=== PATIENT | female | born 1960 | race Two or more races ===

== ENCOUNTER 2018-07-03 07:52 | Emergency (ER) | payer OTHER ==
[2018-07-03 08:00] VITALS: BP 117/70; PULSE 76; TEMP 98; BMI 23.9
[2018-07-03] MEDS ORDERED: DEXAMETHASONE SOD PHOSPHATE 10 MG/1 ML VIAL ONE (08:48)
--- NOTE | 2018-07-03 09:00 | PDOC ---
History of Present Illness - General Chief Complaint: Back Pain Stated Complaint: LOW BACK PAIN Time Seen by Provider: 07/03/18 08:24 History Source: Patient Exam Limitations: No Limitations - History of Present Illness Initial Comments: 07/03/18 08:55 onset of back pain 2 days ago, has progressively worsened - no dificult to sit/ walk/ bend./ Denies injury/ change in exercise. States was vacuuming last th when onset begain / Has been taking Valium and Percocet for pain and spasm with no resolve. Occurred: reports: yesterday Severity: reports: moderate Pain Location: reports: back Method of Injury: Yes: unknown Loss of Consciousness: no loss of consciousness Associated Symptoms (Fall): neck pain Past History - Travel Traveled outside of the country in the last 30 days: No Close contact w/someone who was outside of country & ill: No - Past Medical History Allergies/Adverse Reactions: Allergies Allergy/AdvReac Type Severity Reaction Status Date / Time aspirin Allergy Rash Verified 07/03/18 07:57 ibuprofen Allergy Rash Verified 07/03/18 07:57 Home Medications: Ambulatory Orders Levothyroxine [Synthroid -] 50 mcg PO DAILY 06/18/15 Ciprofloxacin [Cipro -] 500 mg PO BID 7 Days tablet 06/22/15 Lidocaine 5% Patch [Lidoderm -] 1 patch TP DAILY patch 06/22/15 Naproxen [Naprosyn -] 375 mg PO BID #30 tablet 06/22/15 Cyclobenzaprine HCl 10 mg PO Q8H PRN #14 tablet 07/03/18 predniSONE [Deltasone -] 20 mg PO BID #8 tablet 07/03/18 COPD: No Hypercholesterolemia: Yes Thyroid Disease: Yes - Immunization History Immunization Up to Date: Yes - Suicide/Smoking/Psychosocial Hx Smoking History: Never smoked Hx Alcohol Use: No Drug/Substance Use Hx: No Substance Use Type: None Trauma Specific PMHX - Complaint Specific PMHX Back Injury: No (denies heavy lifting, exercise changes, or trauma) Neck Injury: No Review of Systems - Review of Systems Able to Perform ROS?: Yes Is the patient limited [place] proficient: Yes Constitutional: Yes: Symptoms Reported, See HPI, Malaise HEENTM: Yes: See HPI. No: Symptoms Reported Respiratory: Yes: See HPI. No: Symptoms reported, Cough Cardiac (ROS): No: Symptoms Reported Integumentary: Yes: Symptoms Reported Neurological: Yes: Symptoms reported, See HPI, Headache All Other Systems: Reviewed and Negative *Physical Exam - Vital Signs Last Vital Signs Temp Pulse Resp BP Pulse Ox 98.0 F 76 18 117/70 100 07/03/18 07:58 07/03/18 07:58 07/03/18 07:58 07/03/18 07:58 07/03/18 07:58 - Physical Exam General Appearance: Yes: Appropriately Dressed, Apparent Distress, Moderate Distress HEENT: positive: ALEX, Normal ENT Inspection, TMs Normal, Pharynx Normal Neck: positive: Supple. negative: Tender Respiratory/Chest: positive: Lungs Clear Musculoskeletal: positive: Normal Inspection, Decreased Range of Motion, Muscle Spasm (neurovascular intact distal to low back). negative: CVA Tenderness, Vertebral Tenderness Extremity: positive: Normal Capillary Refill. negative: Normal Range of Motion (emitted range of motion, unable to bend at waist or stand secondary severe pain and low back. 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 Wood for potential physical therapy referral for potential change in medication regime, possible orthopedic referral. *DC/Admit/Observation/Transfer Diagnosis at time of Disposition: Low back strain Qualifiers: Encounter type: initial encounter Qualified Code(s): S39.012A - Strain of muscle, fascia and tendon of lower back, initial encounter - Discharge Dispostion Disposition: HOME Condition at time of disposition: Stable Decision to Admit order: No - Prescriptions Prescriptions: Cyclobenzaprine HCl 10 mg PO Q8H PRN #14 tablet PRN Reason: spasm predniSONE [Deltasone -] 20 mg PO BID #8 tablet - Referrals Referrals: Era Allen MD [Primary Care Provider] - Kt Smith DO [Staff Physician] - - Patient Instructions Printed Discharge Instructions: DI for Back Strain or Sprain Additional Instructions: Rest, no heavy lifting or exercise until pain is resolved Hot soaks to neck and low back as often as possible/hot showers or Jacuzzis No massage or therapy until spasm is gone Continue Tylenol 500 mg tablet, 1 tablet every 6 hours for the next 3 days then as needed for pain and swelling Cyclobenzaprine 1-10mg every 8 hours as needed for spasm Prednisone 20 mg twice a day for the next 4 days for steroid all anti- inflammatory purpose If not significant improvement within 24 hours with medication and rest regime, followup with private physician for change in medications and /or therapy. - Post Discharge Activity Forms/Work/School Notes: Back to Work
== END 2018-07-03 09:12 | disposition home or self-care (01) ==
LOC: JERFT 07:52
DX: S39.012A Strain of muscle, fascia and tendon of lower back, initial encounter (principal); X50.0XXA Overexertion from strenuous movement or load, initial encounter; Y93.E3 Activity, vacuuming; Y92.018 Other place in single-family (private) house as the place of occurrence of the external cause; Y99.8 Other external cause status
CPT/HCPCS: 99281-25

== ENCOUNTER 2020-11-25 04:34 | Day surgery (SDC) | payer OTHER ==
[2020-11-22 15:42] VITALS: BMI 23.8
[2020-11-25] MEDS ORDERED: LIDOCAINE HCL/PF 1% SDV 5ML VIAL ONE (07:13)
[2020-11-25] MEDS ORDERED: DEXAMETHASONE SOD PHOSPHATE 10 MG/1 ML VIAL ONE (07:13)
[2020-11-25] MEDS ORDERED: IOHEXOL 180 MG/1 ML ML IJ ONE (08:41)
[2020-11-25] MEDS ORDERED: LIDOCAINE 1% P/F 10 MG/ML VIAL INF ONE (08:42)
[2020-11-25] MEDS ORDERED: DEXAMETHASONE SOD PHOSPHATE 10 MG/1 ML VIAL IM ONE (08:43)
[2020-11-25 09:21] VITALS: BP 124/57; TEMP 98.4
[2020-11-25 10:39] VITALS: PULSE 68
== END 2020-11-25 10:00 | disposition home or self-care (01) ==
LOC: JASU-SURG 04:34
PROVIDERS: ATTEND Pain Medicine Pain Medicine
PROC: 3E0R33Z Introduction of Anti-inflammatory into Spinal Canal, Percutaneous Approach (ICD-10-PCS; 2020-11-25)
PROC: B01BYZZ Fluoroscopy of Spinal Cord using Other Contrast (ICD-10-PCS; 2020-11-25)
PROC: 3E0R3BZ Introduction of Anesthetic Agent into Spinal Canal, Percutaneous Approach (ICD-10-PCS; principal; 2020-11-25 08:15)
DX: M54.16 Radiculopathy, lumbar region (principal); M48.061 Spinal stenosis, lumbar region without neurogenic claudication
CPT/HCPCS: 76000-TC-FY; J1100

== ENCOUNTER 2021-01-03 04:47 | Day surgery (SDC) | payer OTHER ==
[2021-01-02 09:33] VITALS: BMI 24.1
[~2021-01-03 04:47] MED LIST: LIDOCAINE HCL 1%, 10 MG/ML (20ML VIAL) PNB ONE
[2021-01-03] MEDS ORDERED: LIDOCAINE HCL 1%, 10 MG/ML (20ML VIAL) PNB ONE (08:32)
[2021-01-03] MEDS ORDERED: IOHEXOL 180 MG/1 ML ML IJ ONE (08:32)
[2021-01-03] MEDS ORDERED: BUPIVACAINE HCL/PF 0.5% (5 MG/ML) 30 ML VIAL IJ ONE (08:33)
[2021-01-03] MEDS ORDERED: DEXAMETHASONE SOD PHOSPHATE 10 MG/1 ML VIAL IM ONE (08:37)
[2021-01-03 10:09] VITALS: BP 128/70; PULSE 70; TEMP 97
== END 2021-01-03 10:00 | disposition home or self-care (01) ==
LOC: JASU-SURG 04:47
PROVIDERS: ATTEND Pain Medicine Pain Medicine
PROC: 3E0R33Z Introduction of Anti-inflammatory into Spinal Canal, Percutaneous Approach (ICD-10-PCS; 2021-01-03)
PROC: 3E0R3BZ Introduction of Anesthetic Agent into Spinal Canal, Percutaneous Approach (ICD-10-PCS; principal; 2021-01-03 08:30)
DX: M54.16 Radiculopathy, lumbar region (principal); E03.9 Hypothyroidism, unspecified
CPT/HCPCS: 76000-TC-FY; J1100

== ENCOUNTER 2021-02-10 04:27 | Day surgery (SDC) | payer OTHER ==
[2021-02-09 11:37] VITALS: BMI 24.1
[~2021-02-10 04:27] MED LIST changes: +BUPIVACAINE HCL/PF 0.5% (5MG/ML) 10 ML VIAL IJ ONE; +BUPIVACAINE HCL/PF 0.75% 10 ML VIAL NR ONE; +DEXAMETHASONE SOD PHOSPHATE 10 MG/1 ML VIAL IVPUSH ONE; +IOHEXOL 180 MG/1 ML ML IJ ONE; +LIDOCAINE HCL 1% PRESERVATIVE FREE - 30ML VIAL INF ONE; -LIDOCAINE HCL 1%, 10 MG/ML (20ML VIAL) PNB ONE; +TRIAMCINOLONE ACET 40MG/1ML VIAL IM ONE
[2021-02-10] MEDS ORDERED: TRIAMCINOLONE ACET 40MG/1ML VIAL ONE ×2 (09:15→10:24)
[2021-02-10] MEDS ORDERED: DEXAMETHASONE SOD PHOSPHATE 10 MG/1 ML VIAL ONE (09:15)
[2021-02-10] MEDS ORDERED: LIDOCAINE HCL/PF 1% SDV 5ML VIAL ONE (09:15)
[2021-02-10] MEDS ORDERED: BUPIVACAINE HCL/PF 0.75% 10 ML VIAL ONE (09:16)
[2021-02-10] MEDS ORDERED: BUPIVACAINE HCL/PF 0.5% (5MG/ML) 10 ML VIAL ONE (09:16)
[2021-02-10 10:25] VITALS: BP 120/58; PULSE 58; TEMP 97.4
== END 2021-02-10 10:56 | disposition home or self-care (01) ==
LOC: JASU-SURG 04:27
PROVIDERS: ATTEND Pain Medicine Pain Medicine
PROC: 3E0R33Z Introduction of Anti-inflammatory into Spinal Canal, Percutaneous Approach (ICD-10-PCS; 2021-02-10)
PROC: 3E0R3BZ Introduction of Anesthetic Agent into Spinal Canal, Percutaneous Approach (ICD-10-PCS; principal; 2021-02-10 09:00)
DX: M54.16 Radiculopathy, lumbar region (principal); M54.89 Other dorsalgia
CPT/HCPCS: 76000-TC-FY; J1100

== ENCOUNTER 2021-05-12 04:26 | Day surgery (SDC) | payer OTHER ==
[2021-05-11 08:36] VITALS: BMI 24.1
[2021-05-12] MEDS ORDERED: BUPIVACAINE HCL/PF 0.5% (5MG/ML) 10 ML VIAL IJ ONE (09:56)
[2021-05-12] MEDS ORDERED: TRIAMCINOLONE ACETONIDE 40 MG/ML 10 ML VIAL IJ ONE (09:56)
[2021-05-12] MEDS ORDERED: IOHEXOL 180 MG/1 ML ML IJ ONE (09:56)
[2021-05-12] MEDS ORDERED: LIDOCAINE HCL 1% PRESERVATIVE FREE - 30ML VIAL IJ ONE ×2 (09:56)
[2021-05-12 12:00] VITALS: BP 125/57; PULSE 70; TEMP 97.2
== END 2021-05-12 11:30 | disposition home or self-care (01) ==
LOC: JASU-SURG 04:26
PROVIDERS: ATTEND Pain Medicine Pain Medicine
PROC: 3E0U3BZ Introduction of Anesthetic Agent into Joints, Percutaneous Approach (ICD-10-PCS; 2021-05-12)
PROC: 3E0U33Z Introduction of Anti-inflammatory into Joints, Percutaneous Approach (ICD-10-PCS; principal; 2021-05-12 10:30)
DX: M53.3 Sacrococcygeal disorders, not elsewhere classified (principal)
CPT/HCPCS: 76000-TC-FY